=== PATIENT | male | born 1955 | race African-American/Black ===

== ENCOUNTER 2017-06-05 16:37 | Emergency (ER) | payer SELFPAY ==
[~2017-06-05] VITALS: Ht 180.3 cm; Wt 107.0 kg
[2017-06-05 16:44] VITALS: BP 153/79
== END 2017-06-05 20:05 | disposition left against medical advice (07) ==
LOC: ER 16:37
DX: Z53.21 Procedure and treatment not carried out due to patient leaving prior to being seen by health care provider (principal)